=== PATIENT | male | born 1970 | race Caucasian/White ===

== ENCOUNTER 2016-11-29 14:25 | Emergency (ER) | payer BC ==
[~2016-11-29] VITALS: Ht 180.3 cm; Wt 100.0 kg
[2016-11-29] MEDS ORDERED: LISI-538 PO (14:40)
[2016-11-29] MEDS ORDERED: ATOR1TAB21 PO (14:40)
[2016-11-29] MEDS ORDERED: VIAG100T (14:40)
[2016-11-29] MEDS ORDERED: ADACEL/BOOSTRIX VACCINE (DIPHTH/PERTUSS/ACELL/TETANUS)0.5ML SYR (90715) IM ONE (17:45)
[2016-11-29] MEDS ORDERED: AMOXICILLIN 500 MG CAP PO ONE (17:45)
[2016-11-29] MEDS ORDERED: LIDOCAINE 2% MDV 20 ML VIAL SC ONE (17:45)
[2016-11-29] MEDS ORDERED: AMOX500C PO (18:32)
[2016-11-29 18:39] VITALS: BP 168/106
== END 2016-11-29 18:40 | disposition home or self-care (01) ==
LOC: M ED 14:25
DX: S01.511A Laceration without foreign body of lip, initial encounter (principal); S02.5XXA Fracture of tooth (traumatic), initial encounter for closed fracture; I10 Essential (primary) hypertension; E78.00 Pure hypercholesterolemia, unspecified; F17.210 Nicotine dependence, cigarettes, uncomplicated; W22.09XA Striking against other stationary object, initial encounter; W11.XXXA Fall on and from ladder, initial encounter; Y92.018 Other place in single-family (private) house as the place of occurrence of the external cause; Y99.9 Unspecified external cause status; Y93.9 Activity, unspecified; Z79.899 Other long term (current) drug therapy; Z23 Encounter for immunization

== ENCOUNTER → 2016-12-22 | Outpatient (CLI) | payer BC ==
[~2016-12-22] MED LIST: AMOX500C PO; ATOR1TAB21 PO; LISI-538 PO; VIAG100T
== END ==
LOC: M SLEEP HO 15:23
PROVIDERS: ATTEND Nurse Practitioner Adult Health
DX: G47.30 Sleep apnea, unspecified (principal)

== ENCOUNTER → 2017-09-30 | Outpatient (REF) | payer BC ==
[2017-09-30 14:54] LABS: VITAMIN B12 LEVEL 368 PG/ML
[2017-09-30 14:55] LABS: FOLATE 14.7 NG/ML
== END ==
LOC: M LAB REF 14:13
DX: R20.9 Unspecified disturbances of skin sensation (principal)
CPT/HCPCS: 82746